=== PATIENT | female | born 1975 | race Caucasian/White ===

== ENCOUNTER 2016-05-30 21:25 | Emergency (ER) | payer OTHER | END 2016-05-30 22:54 | disposition home or self-care (01) | LOC: ER 21:25 | DX: J32.1 Chronic frontal sinusitis (principal); Z79.899 Other long term (current) drug therapy; Z79.84 Long term (current) use of oral hypoglycemic drugs; F17.210 Nicotine dependence, cigarettes, uncomplicated; E11.9 Type 2 diabetes mellitus without complications; E78.00 Pure hypercholesterolemia, unspecified; I10 Essential (primary) hypertension | CPT/HCPCS: 71020; 81003; 87088; 87804; 87880 ==